=== PATIENT | female | born 1950 | race Caucasian/White ===

== ENCOUNTER 2020-12-20 15:45 | Outpatient (CLI) | payer MEDICARE, SELFPAY ==
--- NOTE | 2020-12-20 | ECG_ITS ---
Measurements Intervals [place] Rate: 85 P: 71 WV: 137 QRS: -11 QRSD: 88 T: 39 QT: 378 QTc: 450 Interpretive Statements SINUS RHYTHM BORDERLINE ST-T WAVE ABNORMALITY- ANTEROLAT/INF LEADS BASELINE ARTIFACT- III, AVL, V4 BORDERLINE ECG Electronically Signed On 12-20-2020 19:12:58 PEDIATRICIAN/MEDICAL DOCTOR by Fritz Veliz D.O.
[2020-12-20 16:17] LABS: Hemoglobin 12.9 g/dL (12.0-15.0)
[2020-12-20 16:28] LABS: Albumin Level 4.6 g/dL (3.5-5.1); Estimated Glomerular Filt Rate > 60; Glucose 118 mg/dL (65-105)
[2020-12-20 16:43] LABS: Hemoglobin A1C 5.7 % (<5.7)
== END 2020-12-20 15:46 | disposition home or self-care (01) ==
LOC: ANHLAB 15:55
PROVIDERS: Visit Provider Orthopaedic Surgery
DX: Z01.818 Encounter for other preprocedural examination (principal); M17.12 Unilateral primary osteoarthritis, left knee
CPT/HCPCS: 36415; 82040; 82565; 82947; 83036; 85014; 85018; 93005

== ENCOUNTER 2021-01-09 11:31 | Outpatient (CLI) | payer MEDICARE, SELFPAY ==
[2021-01-09 13:01] LABS: Basophils Percent Auto 0.4 % (0.2-1.2); Eosinophils Absolute Auto 0.2 K/mm3 (0-0.3); Eosinophils Percent Auto 2.7 % (0-4.4); Hematocrit 38.9 % (37.0-47.0); Immature Granulocyte Absolute 0.02 K/mm3 (0.00-0.031); Immature Granulocyte Percent A 0.3 % (0-0.5); Lymphocytes Percent Auto 39.1 % (18.3-44.2); Mean Corpuscular HGB Conc 33.4 g/dl (32-36); Mean Corpuscular Hemoglobin 30.4 pg (26-34); Mean Corpuscular Volume 91.1 fl (80-100); Mean Platelet Volume 9.8 fl (7.4-10.4); Monocytes Absolute Auto 0.8 K/mm3 (0.1-0.6); Monocytes Percent Auto 11.6 % (2.6-8.5); Neutrophils Absolute Auto 3.3 K/mm3 (1.3-6.7); Neutrophils Percent Auto 45.9 % (45.5-73.1); Platelet Count Result 289 k/mm3 (150-375); Red Blood Count 4.27 M/mm3 (4.2-5.4); Red Cell Distribution Width 15.5 % (11.5-14.5); White Blood Count 7.2 K/mm3 (4.5-10.0)
[2021-01-09 13:12] LABS: Urine Cotinine NEGATIVE
== END 2021-01-09 11:32 | disposition home or self-care (01) ==
LOC: ANHSURGERY 11:32
PROVIDERS: Visit Provider Orthopaedic Surgery
DX: Z01.812 Encounter for preprocedural laboratory examination (principal); M17.12 Unilateral primary osteoarthritis, left knee; Z51.81 Encounter for therapeutic drug level monitoring; Z79.899 Other long term (current) drug therapy
CPT/HCPCS: 80307; 85025; 87081

== ENCOUNTER → 2021-01-26 00:45 | Outpatient (CLI) | payer MEDICARE, SELFPAY ==
[2021-01-26 18:52] LABS: SARS-CoV-2 RNA PCR Negative
== END ==
PROVIDERS: Visit Provider Orthopaedic Surgery
DX: Z01.812 Encounter for preprocedural laboratory examination (principal); Z20.822 Contact with and (suspected) exposure to COVID-19
CPT/HCPCS: C9803; U0003; U0005

== ENCOUNTER 2021-01-29 02:10 | Day surgery (SDC) | payer MEDICARE, SELFPAY ==
[2021-01-09 12:00] VITALS: BMI 35.3
[2021-01-09 12:40] VITALS: BP 133/67; PULSE 76; RESP 16; TEMP 36.7; O2SAT 99
[2021-01-29] VITALS (18 sets, daily range): BP systolic 94–144; BP diastolic 41–88; PULSE 70–109; RESP 14–20; TEMP 35.8–37.2; O2SAT 90–100
--- NOTE | ~2021-01-29 | XR_ITS ---
EXAMINATION: XR knee LT 2V DATE: 01/29/2021 09:44 INDICATION: Total left knee arthroplasty. Postop. TECHNIQUE: 2 views of left knee were obtained. COMPARISON: Left knee radiographs 12/20/2020 FINDINGS: There is a total left knee arthroplasty with patellar resurfacing. Tibia demonstrates 8 deg brittanie posterior angulation with respect to tibial component. There are patchy sclerotic lesions in dis aranza femoral metadiaphysis measuring up to 11 mm. There is a small knee joint effusion. There is gas i n the soft tissues, consistent with recent surgery. IMPRESSION: 1. New total left knee arthroplasty. 2. Sclerotic lesions in distal femoral metadiaphysis. In the absence of known malignancy, these findi ngs may be enchondromas or osteonecrosis. Reviewed, dictated and finalized at location A. IMPRESSION: 1. New total left knee arthroplasty. 2. Sclerotic lesions in distal femoral metadiaphysis. In the absence of known m alignancy, these findings may be enchondromas or osteonecrosis.
[2021-01-29] MEDS: ACETAMINOPHEN 500 MG TABLET 1000 MG PO (06:41)
[2021-01-29] MEDS: LACTATED RINGERS 1,000 ML 30 ML IV CONT ×2 (06:41→10:23)
[2021-01-29] MEDS: TRANEXAMIC ACID 1,000MG/ISO100 1,000 MG/100 ML BAG 200 MG IVPB (06:53)
--- NOTE | 2021-01-29 07:05 | WPDHPUPDATE1 ---
History and Physical Update Update Date/Time: 01/29/21 07:05 History and Physical has been reviewed, including an updated exam of the patient. There are NO changes in the patient's condition. Risks, benefits, and alternatives have been discussed and questions answered. Patient agrees to proceed with procedure.
--- NOTE | 2021-01-29 07:06 | WPDANESEPPF ---
Anes - Initial Pre Proc Eval Procedure: Operation Date: 01/29/21 07:30 Proposed Procedures p Left Total Knee Arthroplasty - Grant Huang MD Date/Time: 01/29/21 07:06 Surgeon: Grant Huang MD Pre Op Diagnosis: Primary OA, Left Knee Patient Data Age: 70 Gender: F Height: 5 ft 4 in Weight: 91.9 kg Last Vital Signs Temp 37.2 C 01/29/21 06:47 Pulse 89 01/29/21 06:47 Resp 16 01/29/21 06:47 BP 129/63 01/29/21 06:47 Pulse Ox 98 01/29/21 06:47 Allergies Allergy/AdvReac Type Severity Reaction Status Date / Time No Known Allergies Allergy Verified 01/29/21 06:20 Home Medications Medication Instructions Recorded Confirmed Type amitriptyline 50 mg tablet 50 mg PO HS 11/29/20 01/29/21 History aspirin 81 mg tablet,delayed 81 mg PO HS 11/29/20 01/29/21 History release cholecalciferol (vitamin D3) 10 10 mcg PO DAILY 11/29/20 01/29/21 History mcg (400 unit) capsule diclofenac sodium 75 mg 75 mg PO QAM 11/29/20 01/29/21 History tablet,delayed release lisinopril 10 mg tablet 10 mg PO HS 11/29/20 01/29/21 History omega-3 fatty acids 1,000 mg 2,000 mg PO BID 11/29/20 01/29/21 History capsule atorvastatin 20 mg tablet 20 mg PO HS 12/20/20 01/29/21 History omeprazole 40 mg capsule,delayed 40 mg PO DAILY 12/20/20 01/29/21 History release calcium 100 mg PO DAILY 01/09/21 01/29/21 History terbinafine HCl 250 mg PO QAM 01/09/21 01/29/21 History Patient hx anesthesia problems: none Family hx anesthesia problems: none PMFSH Past Medical History Medical History History of atypical migraine History of tumor (~1970) Hyperlipidemia Hypertension Surgical History Surgical History History of cholecystectomy (~2011) History of foot surgery (~2006) Foot nerve surgery History of tubal ligation (~1991) Social History Social History Smoking status: Never smoker Additional smoking assessment comments: DENIES ANY TOBACCO USE Alcohol intake: current Alcohol use details: TWO DRINKS PER MONTH Living arrangements: alone Spiritual care concerns: No Anes - Eval Final PreProcedure Day of Procedure 01/29/21 07:06 Patient weight: obese Heart: regular rate and rhythm Lungs: clear to auscultation Airway: Mallampati scale class II Neurological: alert and oriented Last oral intake: >/= 8 hours ASA classification: III Emergent: no Anesthetic plan: proceed Anesthesia type and monitoring: general LMA and standard monitoring Informed Consent: The patient's anesthetic plan and its attendant risks and benefits were discussed with the patient/family/POA. Questions were solicited and answers provided to the satisfaction of the patient/family/POA.
--- NOTE | 2021-01-29 07:28 | WPDANESPNB ---
Anes - Peripheral Nerve Block Date/Time: 01/29/21 07:28 I have discussed with the patient/family/POA the placement of a peripheral nerve block for post-operative pain management, including associated risks, benefits, complications, and side effects. Alternative methods of post-operative analgesia were detailed. Questions were solicited and answers provided to the satisfaction of the patient/family/POA. Time-Out: A pre-procedural Time-Out was completed immediately before starting the procedure and confirmed: Patient Identification, Site, Procedure, Patient Position and the Availability of Requisite Equipment. Clinical Indications: Acute post-operative pain management requested by the operative surgeon. Nerve Block Insertion Note Anes-nerve block: adductor canal left Patient position: supine Skin prep: chlorhexidine Needle: 22 gauge, stimulating, insulated echogenic needle. Needle length: 80 mm Technique: ultrasound Technique comment: [id number] Injectate: bupivacaine 0.5% with epi 5 mcg/ml (30ml) Observations: tolerated well Complications: none Procedure start time:: 714 Procedure end time:: 721
[2021-01-29] MEDS: ceFAZolin 2 GM/D5W 50 ML 2 GM/50 ML BAG IVPB (07:30)
[2021-01-29] MEDS: GENTAMICIN BONE CEMENT REFOBACIN 1 EACH TOPICAL (08:13)
--- NOTE | 2021-01-29 09:31 | P.OP_ITS ---
Procedure Note - Detailed Date of procedure: 01/29/21 Pre-op diagnosis: Primary OA, Left Knee Post-op diagnosis: same Procedure performed: Total knee arthroplasty, left knee Description of procedure: Bone quality was good, 5? valgus on the femur, lateral tibial condyle was hypoplastic, femur downsized 1.5 mm PCL function excellent, there was significant medial pseudolaxity Implants: [place] Triathlon size 3 press-fit femur, size 3 cemented low-profile tibia, 13mm CR polyethylene insert, 35mm asymmetric metal backed patellar component. Anesthesia: GETA and regional (subsartorial nerve block) Surgeon: Grant Huang MD Habitat Biologist: Dunia Cifuentes PA-C Estimated blood loss (mL): 150 Drains: No Complications: None Condition: stable Disposition: PACU Findings: Physician real estate assistant, Dunia Cifuentes PA-C, required for surgery; including patient positioning, draping, tissue retraction, maintaining instrumen t position, cement removal, wound closure, and dressing placement. OPERATIVE DETAILS: The patient was given a nerve block preoperatively, and then brought to the operating room. A general anesthetic was administered. The leg was prepped and draped in the usual sterile fashion. The limb was elevated and the tourniquet inflated to 300 mmHg during initial exposure, and cementation. A longitudinal incision was created along the medial border of the patella and patellar tendon, and a minimally trivector approach to the knee was performed. A minimal medial release was taken. The knee was then flexed. The osteophytes were carefully removed. The intramedullary guide was placed in the femoral canal. The distal femoral resection was then taken with the oscillating saw. The collateral ligaments were carefully protected. The tibia was carefully exposed. The jig was applied, and the proximal tibia was resected according to preoperative plan. The knee was balanced in extension. Appropriate releases were taken where needed. The anterior cruciate ligament and meniscal remnants were removed. The posterior cruciate ligament was preserved. The patella was measured. Patellar resection was carried out with the oscillating saw. The lug holes drilled. The femur was sized and rotation assessed using a combination of gap balancing, posterior referencing, and the AP axis. The 4 in 1 cutting block was used to finish the femoral cuts after equal gaps were assured. The lug holes were drilled. The osteophytes were carefully removed from the back of the knee. The knee was copiously irrigated with antibiotic solution periodically throughout the procedure. The meniscal remnants were removed. The spacer block was used to confirm equal flexion and extension gaps. Further releases were perf ormed as needed. The tibia was sized and broached. The bony surfaces were prepared for cementing with pulsatile lavage. The real tibial component was cemented into position followed by press fitting the femoral component. Excess cement was carefully removed. The patella component was press-fit. Patellar tracking was carefully assessed. No additional releases were required. The wound was closed with #1 Vycril suture, #2 Quill suture, 0-Quill suture, and 2-0 Quill suture followed by Steri-Strips. A sterile bulky dressing was applied. Meticulous hemostasis was maintained throughout the procedure. There were no complications. The patient was extubated and brought to the recovery room in stable condition after the application of sterile dressing with Brian bandage.
[2021-01-29] MEDS: fentaNYL CITRATE INJ (*CRX) 100 MCG/2 ML VIAL 25 MCG IV PUSH ×8 (09:40→10:23)
--- NOTE | 2021-01-29 09:41 | SUR.PHASEI ---
0935 2 VIEWS OF XRAY TAKEN OF LT KNEE.
[2021-01-29] MEDS: HYDROmorphone HCL INJ (*CRX) 1 MG/ML SYR 0.5 MG IV PUSH ×3 (10:28→10:46)
[2021-01-29] MEDS: SODIUM CHLORIDE 0.9% IV 1,000 ML 125 ML IV CONT (12:07)
[2021-01-29] MEDS: ONDANSETRON INJ 4 MG/2 ML VIAL IV PUSH (12:20)
--- NOTE | 2021-01-29 13:24 | PC.NURSE ---
Wet Pan Mixer called Dr. Granados regarding pharmacy clarification, pt calcium is non formulary. N.O may hold at this time while in hospital .
[2021-01-29] MEDS: DOCUSATE SODIUM 100 MG CAPSULE PO (16:56)
[2021-01-29] MEDS: ASPIRIN 81 MG ENTERIC TABLET PO (16:56)
[2021-01-29] MEDS: MELOXICAM 7.5 MG TABLET PO (16:57)
[2021-01-29] MEDS: SENNOSIDES 8.6 MG TABLET 17.2 MG PO (21:24)
[2021-01-29] MEDS: AMITRIPTYLINE HCL 25 MG TABLET 50 MG PO (21:25)
[2021-01-29] MEDS: FAMOTIDINE 20 MG TABLET PO (21:25)
[2021-01-29] MEDS: ATORVASTATIN 20 MG TABLET PO (21:26)
[2021-01-29] MEDS: lisinopriL 10 MG TABLET PO (22:32)
[2021-01-30] VITALS: BP 112/91; PULSE 79; RESP 16; TEMP 35.8; O2SAT 100
[2021-01-30 04:00] VITALS: BP 128/48; PULSE 81; RESP 16; TEMP 35.9; O2SAT 99
[2021-01-30] MEDS: oxyCODONE HCL (*CRX) 5 MG TAB IR PO ×3 (04:43→13:06)
[2021-01-30 06:03] LABS: Basophils Percent Auto 0.3 % (0.2-1.2); Eosinophils Absolute Auto 0.1 K/mm3 (0-0.3); Eosinophils Percent Auto 0.7 % (0-4.4); Hematocrit 31.4 % (37.0-47.0); Hemoglobin 10.4 g/dL (12.0-15.0); Immature Granulocyte Absolute 0.04 K/mm3 (0.00-0.031); Immature Granulocyte Percent A 0.5 % (0-0.5); Lymphocytes Absolute Auto 1.67 K/mm3 (0.9-3.2); Lymphocytes Percent Auto 19.2 % (18.3-44.2); Mean Corpuscular HGB Conc 33.1 g/dl (32-36); Mean Corpuscular Hemoglobin 30.8 pg (26-34); Mean Corpuscular Volume 92.9 fl (80-100); Mean Platelet Volume 10.1 fl (7.4-10.4); Monocytes Absolute Auto 1.5 K/mm3 (0.1-0.6); Monocytes Percent Auto 17.2 % (2.6-8.5); Neutrophils Absolute Auto 5.4 K/mm3 (1.3-6.7); Neutrophils Percent Auto 62.1 % (45.5-73.1); Platelet Count Result 196 k/mm3 (150-375); Red Blood Count 3.38 M/mm3 (4.2-5.4); Red Cell Distribution Width 15.1 % (11.5-14.5); White Blood Count 8.7 K/mm3 (4.5-10.0)
[2021-01-30 06:14] LABS: Anion Gap 5 mmol/L (8-16); Blood Urea Nitrogen 17 mg/dL (7-17); Calcium 8.1 mg/dL (8.4-10.2); Carbon Dioxide 25 mmol/L (22-30); Chloride 103 mmol/L (98-107); Estimated CRCL calculation 64 ml/min; Estimated Glomerular Filt Rate > 60; Glucose 113 mg/dL (65-105); Potassium 4.3 mmol/L (3.4-5.0); Sodium 133 mmol/L (137-145)
--- NOTE | 2021-01-30 07:14 | WPDANESPN ---
Anes - Prog Note Post-Op Date/Time: 01/30/21 07:14 Cardiovascular status: normal Respiratory status: normal Airway patency: baseline Mental status: baseline Post-Op hydration status: normal Vital Signs: Last Vital Signs Temp 35.9 C L 01/30/21 04:00 Pulse 81 01/30/21 04:00 Resp 16 01/30/21 04:00 BP 128/48 L 01/30/21 04:00 Pulse Ox 99 01/30/21 04:00 Pain Score (VAS): 0 I/O: Intake & Output 01/29/21 01/29/21 01/30/21 15:59 23:59 07:59 Intake Total 1000 2140 600 Balance 1000 2140 600 Laboratory Tests 01/30/21 05:25 01/30/21 05:25 01/29/21 01/30/21 01/30/21 06:35 05:25 05:25 WBC 8.7 RBC 3.38 L Hgb 10.4 L Hct 31.4 L MCV 92.9 MCH 30.8 MCHC 33.1 RDW 15.1 H Plt Count 196 MPV 10.1 Immature Gran % (Auto) 0.5 Neut % (Auto) 62.1 Lymph % (Auto) 19.2 [place] % (Auto) 17.2 H Eos % (Auto) 0.7 Baso % (Auto) 0.3 Lymph # (Auto) 1.67 [place] # (Auto) 1.5 H Eos # (Auto) 0.1 Baso # (Auto) 0.0 Abs Immat Gran (auto) 0.04 H Absolute Neuts (auto) 5.4 Absolute Nucleated RBC 0.0 Nucleated RBC % 0.0 Sodium 133 L Potassium 4.3 Chloride 103 Carbon Dioxide 25 Anion Gap 5 L BUN 17 Creatinine 0.80 Estim Creat Clear Calc 64 Estimated GFR > 60 Glucose 113 H Calcium 8.1 L Blood Type A Positive Antibody Screen Negative Post-procedural complaints: none Patient Feedback: Patient satisfied with anesthetic care.
[2021-01-30 08:05] VITALS: PULSE 85; O2SAT 92
[2021-01-30] MEDS: ASPIRIN 81 MG ENTERIC TABLET PO (08:09)
[2021-01-30] MEDS: DOCUSATE SODIUM 100 MG CAPSULE PO (08:09)
[2021-01-30] MEDS: MELOXICAM 7.5 MG TABLET PO (08:09)
[2021-01-30] MEDS: FAMOTIDINE 20 MG TABLET PO (08:09)
[2021-01-30] MEDS: terbinafine HCL 250 MG TABLET PO (08:09)
[2021-01-30] MEDS: PANTOPRAZOLE 40 MG TABLET PO (08:09)
[2021-01-30] MEDS: CHOLECALCIFEROL 400 UNITS TABLET (VIT D) PO (08:10)
[2021-01-30 10:25] VITALS: BP 104/57; PULSE 98; RESP 18; TEMP 36.5; O2SAT 100
--- NOTE | 2021-01-30 12:33 | PM.DS ---
DS: Admitting Diagnosis Admitting Diagnosis Admitting Diagnosis: OA knee Left DS: Discharge Diagnosis Discharge Diagnosis (1) Status post left knee replacement: Code(s): Z96.652 - Presence of left artificial knee joint Status: Acute Assessment and Plan: Patient is POD# 1 Left total knee arthroplasty Patient progressing well from Total knee arthroplasty on the right. Pain controlled with oral pain medications. No complications. She did have an incident of Low BP after receiving Oxycodone last night. BP has been stable since. Did well with initial PT/OT. Follow up in office. See blue instruction sheet for details. Take Aspirin 81 mg BID for 2 weeks for DVT prophylaxis. Percocet for pain. DS: Summary Hospital Course Reason for hospitalization: Total knee arthroplasty Hospital Course: Patient tolerated procedure well. Has had initial PT/OT. Status at Discharge Functional status at discharge: uses cane/walker Overall status at discharge: patient is progressing back to baseline Time Spent with Patient Time attestation: Total time spent providing and/or coordinating discharge services: Exam Narrative: Exam Narrative: Overweight female. Resting comfortably in chair. Wearing compression socks bilaterally. Dressing intact with no drainage. Moderate swelling. No ecchymosis. No erythema. No hematoma. Range of motion limited due to pain. Calf nontender. Neurologic status intact. No varicosities. Distal pulses palpable. DS: Data Data Completed and Pending Labs on day of discharge: Labs from last 24 hours 01/30/01/30/21 05:25 05:25 WBC 8.7 RBC 3.38 L Hgb 10.4 L Hct 31.4 L MCV 92.9 MCH 30.8 MCHC 33.1 RDW 15.1 H Plt Count 196 MPV 10.1 Immature Gran % (Auto) 0.5 Neut % (Auto) 62.1 Lymph % (Auto) 19.2 [place] % (Auto) 17.2 H Eos % (Auto) 0.7 Baso % (Auto) 0.3 Lymph # (Auto) 1.67 [place] # (Auto) 1.5 H Eos # (Auto) 0.1 Baso # (Auto) 0.0 Abs Immat Gran (auto) 0.04 H Absolute Neuts (auto) 5.4 Absolute Nucleated RBC 0.0 Nucleated RBC % 0.0 Sodium 133 L Potassium 4.3 Chloride 103 Carbon Dioxide 25 Anion Gap 5 L BUN 17 Creatinine 0.80 Estim Creat Clear Calc 64 Estimated GFR > 60 Glucose 113 H Calcium 8.1 L Discharge Plan Discharge Patient Disposition: Home, Self-Care Discharge Instructions: See blue instruction sheet Patient Instructions: Aspirin (By mouth), Precautions after Total Joint Replacement Surgery (GEN), Knee Replacement (GEN) Follow-up/Referrals: Dunia Cifuentes PA [Physician Compliance Technician] - Discharge Medications: New aspirin 81 mg tablet,delayed release (DR/EC) 81 mg PO BID 14 Days Qty: 28 RF: 0 oxycodone-acetaminophen 5-325 mg tablet 1 - 2 tablet PO Q4-6H MDD 6 PRN (Reason: pain) Qty: 30 RF: 0 Continued omeprazole 40 mg capsule,delayed release(DR/EC) 40 mg PO DAILY RF: 0 atorvastatin 20 mg tablet 20 mg PO HS RF: 0 lisinopril 10 mg tablet 10 mg PO HS RF: 0 amitriptyline 50 mg tablet 50 mg PO HS RF: 0 diclofenac sodium 75 mg tablet,delayed release (DR/EC) 75 mg PO QAM RF: 0 omega-3 fatty acids [Fish Oil Concentrate] 1,000 mg capsule 2,000 mg PO BID RF: 0 cholecalciferol (vitamin D3) 10 mcg (400 unit) capsule 10 mcg PO DAILY RF: 0 terbinafine HCl 250 mg tablet 250 mg PO QAM RF: 0 calcium 100 mg Capsule 100 mg PO DAILY RF: 0 Held aspirin [Adult Aspirin Regimen] 81 mg tablet,delayed release (DR/EC) 81 mg PO HS RF: 0 Hold Instructions: Resume on 02/13/21. Take 1 81mg Aspirin twice a day for 2 weeks then resume normal daily dose.
== END 2021-01-30 13:10 | disposition home or self-care (01) ==
LOC: ANHSURGERY 06:16 → ANH2MED 11:17
PROVIDERS: PCP Internal Medicine; Visit Provider Orthopaedic Surgery
PROC: (CPT 27447; principal; 2021-01-29 07:30)
DX: M17.12 Unilateral primary osteoarthritis, left knee (principal); G89.18 Other acute postprocedural pain; I10 Essential (primary) hypertension; E78.5 Hyperlipidemia, unspecified; Z79.82 Long term (current) use of aspirin; E66.9 Obesity, unspecified; Z68.34 Body mass index [BMI] 34.0-34.9, adult
CPT/HCPCS: 27447; 64447; 36415; 73560; 80048; 80307; 85025; 86850; 86900; 86901; 87081; 97110; 97116; 97161; 97165; 97530; 97535; A9270; C1713; C1776; C9803; J0131; J0171; J0690; J1100; J1170; J1885; J2250; J2270; J2405; J2704; J2795; J3010; J7030; J7120; U0003; U0005

== ENCOUNTER 2021-07-08 14:29 | Outpatient (CLI) | payer MEDICARE, SELFPAY ==
--- NOTE | 2021-07-08 | ECG_ITS ---
Measurements Intervals [place] Rate: 74 P: 28 SC: 131 QRS: -10 QRSD: 92 T: 28 QT: 393 QTc: 438 Interpretive Statements SINUS RHYTHM DELAYED PRECORDIAL R/S TRANSITION LOW QRS VOLTAGE IN PRECORDIAL LEADS BASELINE ARTIFACT- I, II, III, AVR BORDERLINE ECG Electronically Signed On 07-08-2021 15:09:00 CDT by Fritz Veliz D.O.
[2021-07-08 15:20] LABS: Hematocrit 38.3 % (37.0-47.0); Hemoglobin 12.9 g/dL (12.0-15.0)
[2021-07-08 15:27] LABS: Albumin Level 4.6 g/dL (3.5-5.1); Estimated Glomerular Filt Rate > 60; Glucose 99 mg/dL (65-110)
[2021-07-08 17:41] LABS: Urine Cotinine NEGATIVE
[2021-07-09 02:38] LABS: Hemoglobin A1C 5.9 % (<5.7)
== END 2021-07-08 14:30 | disposition home or self-care (01) ==
LOC: ANHLAB 14:34
PROVIDERS: Visit Provider Orthopaedic Surgery
DX: Z01.818 Encounter for other preprocedural examination (principal); M17.11 Unilateral primary osteoarthritis, right knee; E78.5 Hyperlipidemia, unspecified; I10 Essential (primary) hypertension; Z51.81 Encounter for therapeutic drug level monitoring; Z79.899 Other long term (current) drug therapy
CPT/HCPCS: 80307; 82040; 82565; 82947; 83036; 85014; 85018; 93005

== ENCOUNTER 2021-08-09 09:52 | Outpatient (CLI) | payer MEDICARE, SELFPAY ==
[2021-08-09 10:45] LABS: Basophils Percent Auto 0.6 % (0.2-1.2); Eosinophils Absolute Auto 0.3 K/mm3 (0-0.3); Hemoglobin 12.9 g/dL (12.0-15.0); Immature Granulocyte Absolute 0.02 K/mm3 (0.00-0.031); Immature Granulocyte Percent A 0.4 % (0-0.5); Lymphocytes Absolute Auto 1.85 K/mm3 (0.9-3.2); Lymphocytes Percent Auto 36.6 % (18.3-44.2); Mean Corpuscular HGB Conc 33.9 g/dl (32-36); Mean Corpuscular Hemoglobin 32.7 pg (26-34); Mean Corpuscular Volume 96.2 fl (80-100); Mean Platelet Volume 9.5 fl (7.4-10.4); Monocytes Absolute Auto 0.9 K/mm3 (0.1-0.6); Neutrophils Percent Auto 40.4 % (45.5-73.1); Platelet Count Result 289 k/mm3 (150-375); Red Blood Count 3.95 M/mm3 (4.2-5.4); Red Cell Distribution Width 12.9 % (11.5-14.5); White Blood Count 5.1 K/mm3 (4.5-10.0)
== END 2021-08-09 09:53 | disposition home or self-care (01) ==
LOC: ANHSURGERY 09:58
PROVIDERS: PCP Internal Medicine; Visit Provider Orthopaedic Surgery
DX: Z01.812 Encounter for preprocedural laboratory examination (principal); M17.11 Unilateral primary osteoarthritis, right knee; Z51.81 Encounter for therapeutic drug level monitoring; Z79.899 Other long term (current) drug therapy
CPT/HCPCS: 36415; 85025; 87081

== ENCOUNTER 2021-09-03 00:20 | Day surgery (SDC) | payer MEDICARE, SELFPAY ==
[2021-08-09 10:11] VITALS: BP 142/70; PULSE 86; RESP 18; TEMP 36.9; O2SAT 98; BMI 35.4
--- NOTE | 2021-09-02 13:51 | WPDANESEPPF ---
Anes - Initial Pre Proc Eval Procedure: Operation Date: 09/03/21 10:30 Proposed Procedures p Right Total Knee Arthroplasty - Grant Huang MD Date/Time: 09/02/21 13:51 Surgeon: Grant Huang MD Pre Op Diagnosis: Primary OA Right Knee Patient Data Age: 70 Gender: F Height: 1.63 m Weight: 93.5 kg Last Vital Signs Temp 36.9 C 08/09/21 10:11 Pulse 86 08/09/21 10:11 Resp 18 08/09/21 10:11 BP 142/70 H 08/09/21 10:11 Pulse Ox 98 08/09/21 10:11 Allergies Allergy/AdvReac Type Severity Reaction Status Date / Time No Known Allergies Allergy Verified 09/03/21 08:54 Home Medications Medication Instructions Recorded Confirmed Type amitriptyline 50 mg tablet 50 mg PO HS 11/29/20 09/03/21 History diclofenac sodium 75 mg 75 mg PO QAM 11/29/20 09/03/21 History tablet,delayed release lisinopril 10 mg tablet 10 mg PO HS 11/29/20 09/03/21 History atorvastatin 20 mg tablet 20 mg PO HS 12/20/20 09/03/21 History omeprazole 40 mg capsule,delayed 40 mg PO DAILY 12/20/20 09/03/21 History release aspirin 81 mg PO BID 14 Days #28 tablet 01/30/21 09/03/21 Rx omega-3 fatty acids 1,000 mg 4,000 mg PO BID cap 07/01/21 09/03/21 History capsule calcium 600 mg PO BID 08/09/21 09/03/21 History Patient hx anesthesia problems: none Family hx anesthesia problems: none Results Review: All pre-operative results and documents have been reviewed as part of the pre-operative evaluation. [facility] Past Medical History Medical History (Updated 09/02/21 @ 13:52 by Alberto Mishra MD) Chronic GERD History of atypical migraine History of tumor (~1970) Hyperlipidemia Hypertension Obesity Surgical History Surgical History History of cholecystectomy (~2011) History of foot surgery (~2006) Foot nerve surgery History of tubal ligation (~1991) Status post left knee replacement Social History Social History (Reviewed 08/09/21 @ 09:16 by ISAIAS Lara Smoking status: Never smoker Second hand tobacco smoke exposure: No Additional smoking assessment comments: DENIES ANY TOBACCO USE Alcohol intake: current Alcohol use details: MAYBE 2/MONTH Substance use: never Substance use type: does not use Living arrangements: alone Gender identity (if verbalized by the patient): Female Sexual Orientation (if Verbalized by the Patient): Straight or Heterosexual Spiritual care concerns: No Anes - Eval Final PreProcedure Day of Procedure 09/02/21 13:51 Patient weight: obese Heart: regular rate and rhythm Lungs: clear to auscultation and normal air movement Airway: Mallampati scale class II Neurological: alert and oriented Last oral intake: >/= 8 hours ASA classification: III Emergent: no Anesthetic plan: proceed Anesthesia type and monitoring: general LMA Results Review: All pre-operative results and documents have been reviewed as part of the pre-operative evaluation. Informed Consent: The patient's anesthetic plan and its attendant risks and benefits were discussed with the patient/family/POA. Questions were solicited and answers provided to the satisfaction of the patient/family/POA.
[2021-09-03] VITALS (12 sets, daily range): BP systolic 108–157; BP diastolic 48–75; PULSE 74–92; RESP 12–20; TEMP 36.1–36.7; O2SAT 95–99
--- NOTE | ~2021-09-03 | XR_ITS ---
EXAMINATION: XR knee RT 2V DATE: 09/03/2021 13:57 INDICATION: Total right knee arthroplasty. Postop. TECHNIQUE: 2 views of right knee were obtained. COMPARISON: Right knee radiographs 08/09/2021 FINDINGS: There is a total right knee arthroplasty with patellar resurfacing in near-anatomic alignme nt. No fracture. There is gas in the knee joint and soft tissues, consistent with recent surgery. IMPRESSION: 1. Total right knee arthroplasty in near-anatomic alignment. Reviewed, dictated and finalized at location A. CTOR OF PSYCHIATRY
[2021-09-03] MEDS: ACETAMINOPHEN 500 MG TABLET 1000 MG PO (09:09)
[2021-09-03] MEDS: LACTATED RINGERS 1,000 ML 30 ML IV CONT ×2 (09:10→13:28)
--- NOTE | 2021-09-03 09:27 | WPDANESPNB ---
Anes - Peripheral Nerve Block Date/Time: 09/03/21 09:27 I have discussed with the patient/family/POA the placement of a peripheral nerve block for post-operative pain management, including associated risks, benefits, complications, and side effects. Alternative methods of post-operative analgesia were detailed. Questions were solicited and answers provided to the satisfaction of the patient/family/POA. Time-Out: A pre-procedural Time-Out was completed immediately before starting the procedure and confirmed: Patient Identification, Site, Procedure, Patient Position and the Availability of Requisite Equipment. Clinical Indications: Acute post-operative pain management requested by the operative surgeon. Nerve Block Insertion Note Anes-nerve block: adductor canal right Patient position: supine Skin prep: chlorhexidine Needle: 22 gauge, stimulating, insulated echogenic needle. Needle length: 80 mm Technique: ultrasound Technique comment: in plane Injectate: bupivacaine 0.25% with epi 5 mcg/ml (30cc) Observations: tolerated well Complications: none Procedure start time:: 940 Procedure end time:: 945
[2021-09-03] MEDS: TRANEXAMIC ACID 1,000MG/ISO100 1,000 MG/100 ML BAG 200 MG IVPB (09:28)
--- NOTE | 2021-09-03 10:57 | WPDHPUPDATE1 ---
History and Physical Update Update Date/Time: 09/03/21 10:57 History and Physical has been reviewed, including an updated exam of the patient. There are NO changes in the patient's condition. Risks, benefits, and alternatives have been discussed and questions answered. Patient agrees to proceed with procedure.
[2021-09-03] MEDS: ceFAZolin 2 GM/D5W 50 ML 2 GM/50 ML BAG IVPB ×2 (11:03→17:45)
--- NOTE | 2021-09-03 16:20 | ADMGEN ---
This patient, Lyndsey Cnaas, was admitted to 2 Medical Room 241-. Patient/family oriented to hospital policies and general routines including ID bracelet, bed and alarms, visiting hours, pain management, procedures, bathroom and other care routines, personal items, smoking policy, room service/diet, and visiting hours. Information on how to activate the Rapid Response Team has been discussed. Patient/Family are encouraged to report perceived risks to care and to ask questions if they do not understand what they are told or what they should do.
--- NOTE | 2021-09-03 16:43 | P.OP_ITS ---
Procedure Note - Detailed Date of Procedure 09/03/21 Pre-op Diagnosis Primary OA Right Knee Post-op Diagnosis same Procedure Performed Right total knee arthroplasty. Surgeon Grant Huang MD Marketing Manager Health Communications Dunia Arauz PA-C Anesthesia general Description of Procedure The patient was given a nerve block preoperatively, and then brought to the operating room. A general anesthetic was administered. The leg was prepped and draped in the usual sterile fashion. The limb was elevated and the tourniquet inflated to 300 mmHg during initial exposure, and cementation. A longitudinal incision was created along the medial border of the patella and patellar tendon, and a trivector approach to the knee was performed. No medial release was taken. The knee was then flexed. The osteophytes were carefully removed. The intramedullary guide was placed in the femoral canal. The distal femoral resection was then taken with the oscillating saw. The collateral ligaments were carefully protected. The tibia was carefully exposed. The jig was applied, and the proximal tibia was resected according to preoperative plan. The knee was balanced in extension. The anterior cruciate ligament and meniscal remnants were removed. The posterior cruciate ligament was preserved. The patella was measured. Patellar resection was carried out with the oscillating saw. The lug holes drilled. The femur was sized and rotation assessed using a combination of gap balancing, posterior referencing, and the AP axis. The 4 in 1 cutting block was used to finish the femoral cuts after equal gaps were assured. The lug holes were drilled. The osteophytes were carefully removed from the back of the knee. The knee was copiously irrigated periodically throughout the procedure. The meniscal remnants were removed. The spacer block was used to confirm equal flexion and extension gaps. Further releases were performed as needed. The tibia was sized and broached. The bony surfaces were prepared for cementing with pulsatile lavage. The real tibial component was cemented into position followed by press fitting the femoral component. Excess cement was carefully removed. The patella component was press-fit. Patellar tracking was carefully assessed. No additional releases were required. The wound was closed with #1 Vycril suture, #2 Quill suture, 0-Quill suture, and 2-0 Quill suture followed by Steri-Strips. A sterile bulky dressing was applied. Meticulous hemostasis was maintained throughout the procedure. There were no complications. The patient was extubated and brought to the recovery room in stable condition after the application of sterile dressing with Brian bandage. Implants [place] Triathlon knee system, low profile cemented tibia size 4, press-fit femoral component size 4 ,and an 11 mm cruciate retaining polyethylene insert. 3 5mm asymmetric metal backed press-fit patella component. Estimated Blood Loss -100.0 Drains No Pathology none sent Complications No immediate complications Condition stable Disposition PACU
[2021-09-03] MEDS: CALCIUM CARBONATE (OSCAL) 500 MG TABLET PO (17:43)
[2021-09-03] MEDS: SENNA/DOCUSATE SODIUM TABLET 2 TAB PO (17:43)
[2021-09-03] MEDS: ASPIRIN 81 MG ENTERIC TABLET PO (17:43)
[2021-09-03] MEDS: lisinopriL 10 MG TABLET PO (20:45)
[2021-09-03] MEDS: PANTOPRAZOLE 40 MG TABLET PO (20:45)
[2021-09-03] MEDS: ATORVASTATIN 20 MG TABLET PO (20:45)
[2021-09-03] MEDS: AMITRIPTYLINE HCL 25 MG TABLET 50 MG PO (20:45)
[2021-09-04 00:35] VITALS: BP 107/46; PULSE 75; RESP 20; TEMP 36.1; O2SAT 98
[2021-09-04] MEDS: oxyCODONE HCL (*CRX) 5 MG TAB IR PO ×3 (02:17→09:14)
[2021-09-04] MEDS: ceFAZolin 2 GM/D5W 50 ML 2 GM/50 ML BAG IVPB ×2 (02:18→10:44)
[2021-09-04 04:35] VITALS: BP 102/48; PULSE 77; RESP 20; TEMP 36.3; O2SAT 98
[2021-09-04 05:40] LABS: Basophils Percent Auto 0.2 % (0.2-1.2); Eosinophils Percent Auto 0.1 % (0-4.4); Hematocrit 31.1 % (37.0-47.0); Hemoglobin 10.3 g/dL (12.0-15.0); Immature Granulocyte Absolute 0.05 K/mm3 (0.00-0.031); Immature Granulocyte Percent A 0.5 % (0-0.5); Lymphocytes Absolute Auto 1.29 K/mm3 (0.9-3.2); Lymphocytes Percent Auto 12.1 % (18.3-44.2); Mean Corpuscular HGB Conc 33.1 g/dl (32-36); Mean Corpuscular Hemoglobin 32.3 pg (26-34); Mean Corpuscular Volume 97.5 fl (80-100); Monocytes Absolute Auto 1.4 K/mm3 (0.1-0.6); Monocytes Percent Auto 12.8 % (2.6-8.5); Neutrophils Absolute Auto 7.9 K/mm3 (1.3-6.7); Neutrophils Percent Auto 74.3 % (45.5-73.1); Platelet Count Result 215 k/mm3 (150-375); Red Blood Count 3.19 M/mm3 (4.2-5.4); Red Cell Distribution Width 12.9 % (11.5-14.5); White Blood Count 10.7 K/mm3 (4.5-10.0)
[2021-09-04 05:48] LABS: Anion Gap 9 mmol/L (8-16); Blood Urea Nitrogen 18 mg/dL (7-17); Calcium 8.9 mg/dL (8.4-10.2); Carbon Dioxide 24 mmol/L (22-30); Chloride 104 mmol/L (98-107); Estimated CRCL calculation 73 ml/min; Estimated Glomerular Filt Rate > 60; Glucose 115 mg/dL (65-110); Potassium 4.3 mmol/L (3.4-5.0); Sodium 137 mmol/L (137-145)
[2021-09-04 08:00] VITALS: BP 106/54; PULSE 82; RESP 18; TEMP 36.4; O2SAT 98
--- NOTE | 2021-09-04 08:30 | PM.DS ---
DS: Admitting Diagnosis Discharge Date 09/04/21 Admitting Diagnosis OA knee Right DS: Discharge Diagnosis Discharge Diagnosis (1) Status post total right knee replacement: Code(s): Z96.651 - Presence of right artificial knee joint Status: Acute Assessment and Plan: Patient is POD# 1 Right total knee arthroplasty Patient progressing well from Total knee arthroplasty on the right. Pain controlled with oral pain medications. No complications. Did well with initial PT/OT. Follow up in office. See blue instruction sheet for details. Take Aspirin 81 mg BID for 2 weeks for DVT prophylaxis. Percocet for pain. May start home medication Diclofenac back up right away. DS: Summary Hospital Course Reason for hospitalization: Total knee arthroplasty Hospital Course: Patient tolerated procedure well. Has had initial PT/OT. Status at Discharge Functional status at discharge: uses cane/walker Overall status at discharge: patient is progressing back to baseline Time Spent with Patient Time attestation: Total time spent providing and/or coordinating discharge services: Exam Narrative: Overweight 70 y/o female. Resting comfortably in bed. Wearing compression socks bilaterally. Dressing intact with no drainage. Moderate swelling. No ecchymosis. No erythema. No hematoma. Range of motion limited due to pain. Calf nontender. Neurologic status intact. No varicosities. Distal pulses palpable. DS: Data Data Completed and Pending Labs on day of discharge: Labs from last 24 hours 09/04/21 09/04/21 09/03/21 04:54 04:54 09:11 WBC 10.7 H RBC 3.19 L Hgb 10.3 L Hct 31.1 L MCV 97.5 MCH 32.3 MCHC 33.1 RDW 12.9 Plt Count 215 MPV 10.0 Immature Gran % (Auto) 0.5 Neut % (Auto) 74.3 H Lymph % (Auto) 12.1 L [place] % (Auto) 12.8 H Eos % (Auto) 0.1 Baso % (Auto) 0.2 Lymph # (Auto) 1.29 [place] # (Auto) 1.4 H Eos # (Auto) 0.0 Baso # (Auto) 0.0 Abs Immat Gran (auto) 0.05 H Absolute Neuts (auto) 7.9 H Absolute Nucleated RBC 0.0 Nucleated RBC % 0.0 Sodium 137 Potassium 4.3 Chloride 104 Carbon Dioxide 24 Anion Gap 9 BUN 18 H Creatinine 0.70 Estim Creat Clear Calc 73 Estimated GFR > 60 Glucose 115 H Calcium 8.9 Blood Type A Positive Antibody Screen Negative Discharge Plan Discharge Patient Disposition: Home, Self-Care Discharge Instructions: See green instruction sheet Patient Instructions: Pain Management (DC), Precautions after Total Joint Replacement Surgery (DC), Knee Replacement (DC) Follow-up/Referrals: Dunia Arauz PA [Physician Field Assistant] - Discharge Medications: New oxycodone-acetaminophen 5-325 mg tablet 1 - 2 tablet PO Q4-6H MDD 6 PRN (Reason: pain) Qty: 30 RF: 0 Continued omeprazole 40 mg capsule,delayed release(DR/EC) 40 mg PO DAILY RF: 0 atorvastatin 20 mg tablet 20 mg PO HS RF: 0 lisinopril 10 mg tablet 10 mg PO HS RF: 0 amitriptyline 50 mg tablet 50 mg PO HS RF: 0 diclofenac sodium 75 mg tablet,delayed release (DR/EC) 75 mg PO QAM RF: 0 omega-3 fatty acids [Fish Oil Concentrate] 1,000 mg capsule 4,000 mg PO BID RF: 0 calcium 600 mg Capsule 600 mg PO BID RF: 0 aspirin 81 mg tablet,delayed release (DR/EC) 81 mg PO BID 14 Days Qty: 28 RF: 0
[2021-09-04] MEDS: CALCIUM CARBONATE (OSCAL) 500 MG TABLET PO (09:14)
[2021-09-04] MEDS: polyethylene glycoL 3350 17 GM POWD.PACK PO (09:15)
[2021-09-04] MEDS: DICLOFENAC SOD 75 MG TABLET.EC PO (09:15)
[2021-09-04] MEDS: ASPIRIN 81 MG ENTERIC TABLET PO (09:15)
--- NOTE | 2021-09-04 09:44 | WPDANESPN ---
Anes - Prog Note Post-Op Date/Time: 09/04/21 09:44 Cardiovascular status: normal Respiratory status: normal Airway patency: baseline Mental status: baseline Post-Op hydration status: normal Vital Signs: Last Vital Signs Temp 97.6 F 09/04/21 08:00 Pulse 82 09/04/21 08:00 Resp 18 09/04/21 08:00 BP 106/54 L 09/04/21 08:00 Pulse Ox 98 09/04/21 08:00 Pain Score (VAS): 0/10 I/O: Intake & Output 09/03/21 09/04/21 09/04/21 23:59 07:59 15:59 Intake Total 730 600 360 Output Total 0 600 Balance 730 0 360 Laboratory Tests 09/04/21 04:54 09/04/21 04:54 09/03/21 09/04/21 09/04/21 09:11 04:54 04:54 WBC 10.7 H RBC 3.19 L Hgb 10.3 L Hct 31.1 L MCV 97.5 MCH 32.3 MCHC 33.1 RDW 12.9 Plt Count 215 MPV 10.0 Immature Gran % (Auto) 0.5 Neut % (Auto) 74.3 H Lymph % (Auto) 12.1 L [place] % (Auto) 12.8 H Eos % (Auto) 0.1 Baso % (Auto) 0.2 Lymph # (Auto) 1.29 [place] # (Auto) 1.4 H Eos # (Auto) 0.0 Baso # (Auto) 0.0 Abs Immat Gran (auto) 0.05 H Absolute Neuts (auto) 7.9 H Absolute Nucleated RBC 0.0 Nucleated RBC % 0.0 Sodium 137 Potassium 4.3 Chloride 104 Carbon Dioxide 24 Anion Gap 9 BUN 18 H Creatinine 0.70 Estim Creat Clear Calc 73 Estimated GFR > 60 Glucose 115 H Calcium 8.9 Blood Type A Positive Antibody Screen Negative Patient Feedback: Patient satisfied with anesthetic care.
[2021-09-04] MEDS: CYCLOBENZAPRINE HCL 10 MG TABLET PO (12:15)
== END 2021-09-04 12:30 | disposition home or self-care (01) ==
LOC: ANHSURGERY 08:32 → ANH2MED 14:41
PROVIDERS: Physician Assistant Surgical; PCP Internal Medicine; Visit Provider Orthopaedic Surgery
PROC: (CPT 27447; principal; 2021-09-03 10:30)
DX: M17.11 Unilateral primary osteoarthritis, right knee (principal); G89.18 Other acute postprocedural pain; I10 Essential (primary) hypertension; E78.5 Hyperlipidemia, unspecified; K21.9 Gastro-esophageal reflux disease without esophagitis; E66.9 Obesity, unspecified; Z68.35 Body mass index [BMI] 35.0-35.9, adult; Z79.82 Long term (current) use of aspirin
CPT/HCPCS: 27447; 64447; 36415; 73560; 80048; 85025; 86850; 86900; 86901; 87081; 97110; 97161; 97165; A9270; C1713; C1776; J0131; J0171; J0690; J1100; J1170; J1885; J2250; J2270; J2405; J2704; J2795; J3010; J7120

== ENCOUNTER 2021-09-10 09:24 | Outpatient (CLI) | payer MEDICARE, SELFPAY ==
--- NOTE | ~2021-09-10 | US_ITS ---
EXAMINATION: US venous doppler LE RT DATE: 09/10/2021 10:29 INDICATION: Right lower limb pain. TECHNIQUE: Grayscale ultrasound images without and with compression and Doppler ultrasound images of the right lower extremity veins were obtained. COMPARISON: None. FINDINGS: The visualized portions of right common femoral vein, profunda (deep) femoral vein, femoral vein, pop liteal vein, posterior tibial veins, and greater saphenous vein outflow are patent. The peroneal vein s are not well visualized. IMPRESSION: 1. No deep venous thrombosis. Reviewed, dictated and finalized at location B. [employer]
== END 2021-09-10 09:25 | disposition home or self-care (01) ==
LOC: ANHIMG 09:31
PROVIDERS: Visit Provider Orthopaedic Surgery
DX: M25.561 Pain in right knee (principal); R60.0 Localized edema
CPT/HCPCS: 93971